=== PATIENT | male | born 1995 | race Caucasian/White ===

== ENCOUNTER 2017-08-21 00:01 | Emergency (ER) | payer OTHER ==
[~2017-08-21] VITALS: Ht 177.8 cm; Wt 64.0 kg
[2017-08-21] MEDS ORDERED: IBUPROFEN 400MG TABLET PO ONE (01:45)
[2017-08-21 03:00] VITALS: BP 128/78
== END 2017-08-21 03:30 | disposition home or self-care (01) ==
LOC: ER 00:02
DX: J93.9 Pneumothorax, unspecified (principal); Z87.891 Personal history of nicotine dependence
CPT/HCPCS: 71020; 93005; 99284